=== PATIENT | male | born 1950 | race African-American/Black ===

== ENCOUNTER → 2017-07-21 | Outpatient (CLI) | payer OTHER ==
[~2017-07-21] MED LIST: LIBRAX CAPSULE1 CA1 PO; LOTREL 10-20 M1 EACH; PERCOCET5/325 PO; XARELTO10 MG PO
--- NOTE | ~2017-07-21 | EKG ---
PATIENT: BETTINA HECK UNIT #: [id number] Ventricular Rate: 61 BPM Atrial Rate: 61 BPM P-R Interval: 150 ms QRS Duration: 102 ms Q-T Interval: 434 ms QTC Calculation(Bezet): 436 ms P Leroy: 43 degrees Calculated R Leroy: -32 degrees Calculated T Leroy: 45 degrees Diagnosis Line: Normal sinus rhythm Diagnosis Line: Left axis deviation Diagnosis Line: Possible Anterior infarct , age undetermined Diagnosis Line: Abnormal ECG Diagnosis Line: No previous ECGs available Diagnosis Line: Confirmed by SHIRLEY YANEZ MD ([id number]) on 07/21/2017 Diagnosis Line: 10:12:45 PM INTERPRETING MD: RENATA MENENDEZ
[2017-07-21 12:50] LABS: CALCIUM SERUM 9.6 mg/dL (8.4-10.2); CREATININE SERUM 1.1 mg/dL (0.6-1.4); GLOM FILT RATE Estimated 80.7 mL/min (>60); POTASSIUM 3.9 mmol/L (3.5-5.1)
== END | disposition home or self-care (01) ==
LOC: CAMB 10:55
PROVIDERS: Orthopaedic Surgery
DX: Z01.818 Encounter for other preprocedural examination (principal); S96.911A Strain of unspecified muscle and tendon at ankle and foot level, right foot, initial encounter; R94.31 Abnormal electrocardiogram [ECG] [EKG]
CPT/HCPCS: 36415; 80048; 93005

== ENCOUNTER 2017-08-05 07:33 | Observation (INO) | payer OTHER ==
[~2017-08-05] VITALS: Ht 175.3 cm; Wt 102.5 kg
--- NOTE | ~2017-08-05 | OR ---
Unit #: [id number] #: [id number] Patient: BETTINA HECK [id number] [address] [place], [place] [address] [id number] MR#: [id number] NAME: BETTINA HECK ROOM: [facility] Date of Procedure: 08/05/2017 Admission Date: 08/05/2017 Surgeon: Doug Araiza M.D. : 1950 Attending Physician: Doug Araiza M.D. OPERATIVE REPORT PREOPERATIVE DIAGNOSIS Stage IIB right posterior tibial tendon tear. POSTOPERATIVE DIAGNOSES 1. Right posterior tibial tendon insertional tear. 2. Right spring ligament tear. PROCEDURES PERFORMED 1. Right flexor digitorum longus tendon transfer to navicular (85537). 2. Right lateral column lengthening (26983). 3. Right medialized and calcaneal osteotomy, separate procedure (91559). 4. Right gastrocnemius recession (97792). 5. Right dorsal opening wedge osteotomy of medial cuneiform (cotton procedure) (71911). ASSISTANTS Tiffany, RENETTA. ANESTHESIA Popliteal saphenous block and general. INDICATIONS FOR SURGERY The patient is a 67-year-old male with longstanding right medial foot and ankle pain with progressive flatfoot deformity secondary to posterior tibial tendon tear. The patient has failed to respond to conservative care. He is therefore to undergo surgical correction. He has pain with activities of daily living. Risks and benefits of the procedure were discussed in detail. He agrees to proceed with this treatment plan. DESCRIPTION OF PROCEDURE The patient was taken to the operating room and placed in supine position following right popliteal saphenous block. General anesthetic was induced. The right foot was identified as the correct operative extremity during the time-out procedure. The IV antibiotic protocol was followed. The right leg was then prepped and draped in the usual sterile fashion. The leg was exsanguinated and the thigh tourniquet inflated to 300 mmHg. A 6 cm lateral longitudinal incision was made over the peroneal tendon sheath and calcaneocuboid joint. Subcutaneous tissue was divided. The peroneal tendon sheath was opened. The peroneal tendons were retracted inferiorly. The calcaneus was exposed subperiosteally. Two baby Hohmann retractors were placed. An osteotomy of the anterior calcaneus was performed 2 cm proximal to the calcaneocuboid joint utilizing a Unit #: [id number] #: [id number] Patient: BETTINA HECK microsagittal saw. The osteotomy was then completed with the power osteotome. The osteotomy was opened and a series of trial wedges were used to determine the width of the opening of the osteotomy. A 10 mm wide wedge was found to fit appropriately. The [employer] Narayan wedge measuring 10 mm in width was then impacted into place. This afforded excellent correction of the talonavicular joint. It should also be noted that prior to lengthening of the lateral column, the calcaneocuboid joint was pinned in situ with a 0.062-inch diameter smooth Zeke wire. Following impaction of the metal wedge, the K-wire was removed. A lateral longitudinal incision was then made over the calcaneal tuberosity measuring 5 cm. The subcutaneous tissue was carefully divided. The lateral calcaneal wall was exposed subperiosteally. Baby Hohmann retractors were placed. The microsagittal saw was then used to osteotomize the calcaneus from lateral to medial. The medial cortex was opened with the power osteotome. The osteotomy was then spread open with the smooth laminar bricklayer. The osteotomy was then translated medially 1 cm and fixated with the OrthoHelix EdgeLock plate. The blade was impacted into the anterior fragment and the calcaneal tuberosity was displaced medially. The outrigger drill guide was then used to place a 5.5 mm diameter screw in the posterior calcaneal tuberosity fragment. A second screw was placed in the anterior fragment through the hole and the blade. Excellent fixation was achieved. Intraoperative C-arm fluoroscopy documented satisfactory screw and plate position. A medial longitudinal incision measuring 8 cm was then made over the posterior tibial tendon sheath. The subcutaneous tissue was carefully divided. The posterior tibial tendon was inspected and found to be torn interstitially at its insertion. The posterior tibial tendon was then sharply reflected off the navicular tuberosity and this revealed a 3 cm vertical tear in the spring ligament. The distal 1 cm posterior tibial tendon was resected and sent to Pathology. The edges of the spring ligament tear were then freshened with a 15-blade. The spring ligament was then repaired with multiple #2 FiberWire sutures using a kaqyxj-mi-itdho technique. An OrthoHelix 4.5 mm diameter suture anchor was then placed in the navicular tuberosity. The two attached #2 FiberWire sutures were then used to repair the posterior tibial tendon back down to the navicular tuberosity. The flexor digitorum longus tendon was found deep to the posterior tibial tendon sheath. Deep FDL tendon was pulled into the wound and released at the Knot of Alexandru. It was then advanced distally and the two attached sutures to the suture anchor were used to repair the FDL tendon back down to the navicular tuberosity using a modified Preciado sutures. The FDL tendon was then repaired to the posterior tibial tendon with multiple #2 FiberWire [id number] sutures. The forefoot then rested in 10 degrees of varus. Therefore, a cotton procedure was required. A dorsal longitudinal incision was then made over the medial cuneiform. The subcutaneous tissue was divided. The extensor hallucis longus tendon was retracted. The dorsal cortex of the medial cuneiform was exposed subperiosteally. A 0.062 smooth K-wire was then drilled in a center-center position in the medial cuneiform from dorsal to plantar. Pin position was confirmed radiographically. The pin was then left in place to act as a guide during the osteotomy of the medial cuneiform. The microsagittal saw was then used to cut the medial cuneiform from dorsal to plantar leaving the plantar cortex intact. The Unit #: [id number] #: [id number] Patient: BETTINA HECK osteotomy was opened with the power osteotome and then spread with the smooth laminar bricklayer. Multiple trials were made with different sized wedges and the 6 mm thick wedge afforded excellent correction of the deformity. Therefore, a 6 mm wide Myoonetam cotton wedge was impacted into place. Excellent fixation was achieved. The forefoot was then in rectus position. The ankle was then in 15 degrees of equinus. Therefore, a gastrocnemius recession was required. A 5 cm medial longitudinal incision was made in the posterior mid calf. Subcutaneous tissue was divided. The deep fascia was opened. The interval between the gastrocnemius and soleus fascia were then identified. The sural nerve was protected. Corral scissors were then used to cut the gastrocnemius fascia from medial to lateral. This then improved ankle dorsiflexion to 10 degrees dorsiflexion. The tourniquet was released with a total tourniquet time of 1 hour 30 minutes. Bleeding was controlled with electrocautery. The deep tissues were closed with 2-0 Vicryl. Subcutaneous tissue was closed with 3-0 Vicryl. Skin was closed with 3-0 nylon horizontal mattress sutures. Xeroform gauze, dressing, sponges, Webril, and a posterior fiberglass splint holding the patient in neutral position and slight inversion was applied. The patient was then awakened in the operating room and transported to the recovery room in stable condition. ESTIMATED BLOOD LOSS Minimal. COMPLICATIONS None. SPECIMENS None. TOURNIQUET TIME 1 hour 30 minutes. FINDINGS Insertional tear posterior tibial tendon and spring ligament tear. Dictated by.Marjan Bradford/cherrie TD: 08/06/2017 11:51 JOB #: [id number] OPERATIVE REPORT Page 1 of 1 X Rosa Araiza MD X PROCEDURE OPERATIVE NOTE
--- NOTE | ~2017-08-05 | HP ---
Unit #: [id number] #: [id number] Patient: BETTINA HECK [id number] [address] [place], [place] [address] [id number] MR#: [id number] NAME: BETTINA HECK ROOM: Age: Sex: M Admission Date: 08/05/2017 : 1950 Attending Physician: Doug Araiza M.D. HISTORY AND PHYSICAL CHIEF COMPLAINT Painful right foot deformity. HISTORY OF PRESENT ILLNESS The patient is a 67-year-old male who has chronic right foot pain with worsening flatfoot deformity. Physical exam is consistent with a posterior tibial tendon tear. Standing x-rays demonstrate a marked deformity with uncovering of the talonavicular joint of greater than 30%. The patient has failed nonoperative care. He is, therefore, admitted for surgical correction. His deformity of a stage IIB deformity (1) flexible. The patient complains of pain, both of the medial and lateral aspects of the hindfoot. PAST MEDICAL HISTORY Hypertension, hypercholesterolemia. HOME MEDICATIONS Amlodipine, benazepril. ALLERGIES None. PAST SURGICAL HISTORY Knee surgery. SOCIAL HISTORY The patient is a social drinker. He is a 25 pack-year smoker. FAMILY HISTORY Stoke and coronary artery disease. REVIEW OF SYSTEMS Unremarkable except for obesity. PHYSICAL EXAM VITAL SIGNS: Height 5'9", weight 230 pounds, BMI 34. GENERAL: This is an obese male in no acute distress. HEENT: Pharynx is clear. NECK: The neck is supple without masses. HEART: Heart exam reveals a regular sinus rhythm without murmurs or gallops. LUNGS: The lungs are clear. ABDOMEN: The abdomen is soft and nontender without masses or organomegaly. Unit #: [id number] #: [id number] Patient: BETTINA HECK EXTREMITIES: Evaluation of the right foot shows a pes planus deformity with 10 degrees of heel valgus. The forefoot is abducted. (2) sign. The patient is unable to do a single heel rise on the right foot. Ankle dorsiflexion is 0 degrees. Plantarflexion is 30 degrees. Subtalar motion is normal. First MTP joint motion is normal. The patient is point tender over the posterior tibial tendon, as well in the sinus tarsi. Inversion strength is weak. Otherwise, motor exam is normal. Pulses are normal. Sensation is normal. DIAGNOSTIC STUDIES IMAGING: Standing x-rays of the right foot show a lateral talar first metatarsal angle of -15 degrees with calcaneus pitch of 11 degrees. Medial cuneiform height is 12 mm. The talonavicular joint is uncovered 30%. ADMITTING DIAGNOSIS Right foot stage IIB posterior tibial tendon dysfunction. PLAN The patient has failed conservative care. He will, therefore, undergo surgical correction. This will entail flexor digitorum longus tendon transfer, lateral column lengthening, medializing calcaneal osteotomy, gastrocnemius recession, and Cotton procedure. This procedure was described, along with the risks of bleeding, infection, nerve damage, nonunion, malunion, persistent deformity, persistent pain, prolonged swelling, deep venous thrombosis, pulmonary embolism, anesthetic complications and prolonged recovery time. The patient understands the above risks and agrees to proceed with the treatment plan. He reviewed the operative permit and signed it in our office. Dictated by Marjan Johnson/casimiro TD: 08/04/2017 19:09 JOB #: [id number] HISTORY AND PHYSICAL Page 1 of 1 X Rosa Arazia MD X HISTORY AND PHYSICAL
[2017-08-05] MEDS ORDERED: LOTREL 10-20 M1 EACH (11:27)
[2017-08-05] MEDS ORDERED: LIBRAX CAPSULE1 CA1 PO (11:28)
[2017-08-06] MEDS ORDERED: XARELTO10 MG PO (12:53)
[2017-08-06] MEDS ORDERED: PERCOCET5/325 PO (12:55)
== END 2017-08-06 17:37 | disposition home or self-care (01) ==
LOC: CSUR 07:33 → CPACUOF 09:08 → C4B 09:08 → CPACUOF 09:08 → CSUR 09:30 → C4B 14:35 → CPACUOF 14:35 → C4B 16:45
DX: S86.111A Strain of other muscle(s) and tendon(s) of posterior muscle group at lower leg level, right leg, initial encounter (principal); S83.8X1A Sprain of other specified parts of right knee, initial encounter; I10 Essential (primary) hypertension; E78.00 Pure hypercholesterolemia, unspecified; E66.9 Obesity, unspecified; F17.200 Nicotine dependence, unspecified, uncomplicated; Z79.899 Other long term (current) drug therapy; Z68.34 Body mass index [BMI] 34.0-34.9, adult; Z98.818 Other dental procedure status; Z98.890 Other specified postprocedural states; X58.XXXA Exposure to other specified factors, initial encounter
CPT/HCPCS: 88305; 94010; 94760; 96374; 96376; 97116; 97161; 97530; C1713; G0378; G8978-GP; G8979-GP; G8980-GP; J0690; J1170; J2250; J2270; J2370; J2405; J2795; J3010